=== PATIENT | female | born 1980 | race Caucasian/White ===

== ENCOUNTER 2017-04-28 19:44 | Emergency (ER) | payer MEDICAID ==
[~2017-04-28] VITALS: Ht 170.2 cm; Wt 64.6 kg
[~2017-04-28 19:44] MED LIST: CYCL5TAB PO; TRAM50TA2 PO
[2017-04-28] MEDS ORDERED: HYDROcodone/APAP 5/325 TABLET ONE (21:12)
[2017-04-28] MEDS ORDERED: HYDROcodone/APAP 5/325 TABLET PO ONE (21:30)
[2017-04-28] MEDS ORDERED: DIAZEPAM 5 MG/ML, 2ML IV ONE (22:00)
[2017-04-28] MEDS ORDERED: SODIUM CHLORIDE FLUSH 10ML SYR IVF ONE (22:00)
[2017-04-28] MEDS ORDERED: BUPIVACAINE 0.25% INFIL ONE (22:00)
[2017-04-28] MEDS ORDERED: BUPIVACAINE 0.25% ONE (22:03)
[2017-04-28] MEDS ORDERED: DIAZEPAM 5 MG TABLET ONE (22:11)
[2017-04-28] MEDS ORDERED: LIDOCAINE-MPF 2% ,5ML ONE (22:13)
[2017-04-28 23:27] VITALS: BP 135/87
== END 2017-04-28 23:34 | disposition home or self-care (01) ==
LOC: ED 21:58
DX: S52.531A Colles' fracture of right radius, initial encounter for closed fracture (principal); S52.611A Displaced fracture of right ulna styloid process, initial encounter for closed fracture; G89.11 Acute pain due to trauma; V29.69XA Unspecified motorcycle rider injured in collision with other motor vehicles in traffic accident, initial encounter; Y93.55 Activity, bike riding; Y92.89 Other specified places as the place of occurrence of the external cause; Y99.8 Other external cause status
CPT/HCPCS: 73110; 96374; 99284; J3360

== ENCOUNTER 2017-05-22 15:14 | Day surgery (SDC) | payer MEDICAID ==
[~2017-05-22] VITALS: Ht 170.2 cm; Wt 65.6 kg
[2017-05-22] MEDS ORDERED: LIDOCAINE 1%, 2ML ONE (15:31)
[2017-05-22] MEDS ORDERED: LACTATED RINGERS 1,000 ML IV SCH (15:33)
[2017-05-22 15:44] VITALS: BP 120/80
[2017-05-22 15:45] LABS: DAU SCREEN DISCLAIMER
[2017-05-22 15:51] LABS: HCG UR OBC PASS
[2017-05-22] MEDS ORDERED: IBUP100T6 PO (15:57)
[2017-05-22] MEDS ORDERED: OXYC5CAP2 PO (15:57)
[2017-05-22] MEDS ORDERED: NAPR1TAB25 PO (15:57)
[2017-05-22] MEDS ORDERED: PLEASE ENTER HEIGHT AND WEIGHT MC SCH (16:00)
[2017-05-22] MEDS ORDERED: LIDOCAINE 1%, 2ML SQ PRN (16:00)
[2017-05-22] MEDS ORDERED: BUPIVACAINE/PF 0.5% ONE (16:30)
[2017-05-22] MEDS ORDERED: BUPIVACAINE/PF-EPI 0.25% 1:200K ONE (16:30)
[2017-05-22] MEDS ORDERED: EPINEPHRINE 1 MG/ML, 1ML ONE (16:31)
[2017-05-22] MEDS ORDERED: BACITRACIN 50,000 UNIT ONE (16:31)
[2017-05-22] MEDS ORDERED: MIDAZOLAM 1 MG/ML, 2ML ONE (16:55)
[2017-05-22] MEDS ORDERED: HYDROmorphone 1 MG/ML, 1ML ONE (16:55)
[2017-05-22] MEDS ORDERED: FENTANYL PF 100 MCG/2ML ONE (16:55)
[2017-05-22] MEDS ORDERED: ONDANSETRON 2MG/ML, 2ML ONE (17:08)
[2017-05-22] MEDS ORDERED: ROCURONIUM 10 MG/ML ONE (17:08)
[2017-05-22] MEDS ORDERED: CEFAZOLIN 1,000 MG ONE (17:08)
[2017-05-22] MEDS ORDERED: PROPOFOL 10 MG/ML, 20ML ONE (17:08)
[2017-05-22] MEDS ORDERED: DEXAMETHASONE 4 MG/ML, 1ML ONE (17:08)
[2017-05-22] MEDS ORDERED: SUCCINYLCHOLINE 20 MG/ML, 10ML ONE (17:08)
[2017-05-22] MEDS ORDERED: hydrALAzine 20 MG/ML, 1ML IV PRN (19:00)
[2017-05-22] MEDS ORDERED: ONDANSETRON 2MG/ML, 2ML IVPush PRN (19:00)
[2017-05-22] MEDS ORDERED: FENTANYL PF 100 MCG/2ML IV PRN (19:00)
[2017-05-22] MEDS ORDERED: LABETALOL 5MG/ML, 20ML IV PRN (19:00)
[2017-05-22] MEDS ORDERED: HYDROmorphone 1 MG/ML, 1ML IV PRN (19:00)
[2017-05-22] MEDS ORDERED: METOCLOPRAMIDE 5 MG/ML, 2ML IV PRN (19:00)
[2017-05-22] MEDS ORDERED: ACETAMINOPHEN 325 MG TABLET PO PRN (19:00)
[2017-05-22] MEDS ORDERED: OXYcodone 5 MG/5 ML ORAL.SOL UDC PO PRN (19:00)
[2017-05-22] MEDS ORDERED: ACETAMINOPHEN 650 MG/20.3 ML UDC ONE (19:04)
[2017-05-22] MEDS ORDERED: OXYcodone 5 MG/5 ML ORAL.SOL UDC ONE (19:05)
== END 2017-05-22 22:11 | disposition home or self-care (01) ==
LOC: OR 15:14 → 4NOR 20:00 → OR 22:11
PROVIDERS: ATTEND Orthopaedic Surgery
DX: S52.502P Unspecified fracture of the lower end of left radius, subsequent encounter for closed fracture with malunion (principal); X58.XXXD Exposure to other specified factors, subsequent encounter; Z79.899 Other long term (current) drug therapy
CPT/HCPCS: 25400; 73100; 76001; 80307; 81025; C1713; J0171; J0330; J0690; J1100; J1170; J2250; J2405; J2704; J3010; J3490; G0479

== ENCOUNTER 2018-05-05 10:44 | Emergency (ER) | payer MEDICAID ==
[~2018-05-05] VITALS: Ht 167.6 cm; Wt 66.0 kg
[~2018-05-05 10:44] MED LIST changes: +IBUP100T6 PO; +NAPR1TAB25 PO; +OXYC5CAP2 PO
[2018-05-05] MEDS ORDERED: IBUPROFEN 200 MG TABLET PO ONE (11:30)
[2018-05-05] MEDS ORDERED: ACETAMINOPHEN 500 MG TABLET PO ONE (11:30)
[2018-05-05] MEDS ORDERED: IBUPROFEN 200 MG TABLET ONE (11:47)
[2018-05-05] MEDS ORDERED: ACETAMINOPHEN 500 MG TABLET ONE (11:48)
[2018-05-05 11:49] LABS: BASOPHILS # (AUTO) 0.03 x10^3/uL (0-0.1); BASOPHILS % (AUTO) 0 % (0-1); EOSINOPHILS # (AUTO) 0.01 x10^3/uL (0-0.4); EOSINOPHILS % (AUTO) 0 % (1-7); LYMPHOCYTES # (AUTO) 2.87 x10^3/uL (1-3.4); LYMPHOCYTES % (AUTO) 23 % (22-44); MD NO; MEAN CORPUSCULAR HEMOGLOBIN 31.6 pg (27.0-34.8); MEAN CORPUSCULAR HGB CONC 34.5 g/dL (32.4-35.8); MEAN CORPUSCULAR VOLUME 91.4 fL (80-100); MEAN PLATELET VOLUME 8.1 fL (7.4-10.4); MONOCYTES # (AUTO) 0.91 x10^3/uL (0.2-0.8); MONOCYTES % (AUTO) 7 % (2-9); NEUTROPHILS # (AUTO) 8.54 x10^3/uL (1.8-6.8); NEUTROPHILS % (AUTO) 69 % (42-75); PLATELET COUNT 330 x10^3/uL (130-400); RED BLOOD COUNT 4.56 x10^6/uL (3.82-5.3)
[2018-05-05 11:56] LABS: MICROSCOPIC AUTO
[2018-05-05 11:58] LABS: CULTURE INDICATED? NO
[2018-05-05 12:00] LABS: ALBUMIN 4.6 g/dL (3.4-5.0); ANION GAP 11 mmol/L (5-15); CALCIUM 8.9 mg/dL (8.5-10.1); CHLORIDE 104 mmol/L (98-107)
[2018-05-05 12:05] LABS: CREATININE 0.96 mg/dL (0.55-1.02)
[2018-05-05 12:31] VITALS: BP 148/91
[2018-05-05] MEDS ORDERED: SODIUM CHLORIDE 0.9% 1,000ML IVBOLUS ONE (13:00)
== END 2018-05-05 13:53 | disposition left against medical advice (07) ==
LOC: ED 13:47
DX: M54.5 Low back pain (principal); R10.9 Unspecified abdominal pain; F17.200 Nicotine dependence, unspecified, uncomplicated
CPT/HCPCS: 36415; 80048; 81001; 82040; 82550; 84703; 85025; 99284

== ENCOUNTER → 2019-06-30 | Outpatient (CLI) | payer MEDICAID ==
[~2019-06-30] MED LIST changes: +LIDOCAINE-MPF 1%, 5ML ONE; +OMNIPAQUE 350 MG/ML, 50 ML BOTTLE ONE; +SODIUM BICARBONATE 4.0%, 5ML ONE
== END | disposition home or self-care (01) ==
LOC: RAD 12:44
PROVIDERS: ATTEND Orthopaedic Surgery
DX: M25.732 Osteophyte, left wrist (principal)
CPT/HCPCS: 73115; 73222; Q9967

== ENCOUNTER 2019-07-30 08:10 | Outpatient (CLI) | payer MEDICAID ==
[~2019-07-30 08:10] MED LIST changes: -LIDOCAINE-MPF 1%, 5ML ONE; -OMNIPAQUE 350 MG/ML, 50 ML BOTTLE ONE; -SODIUM BICARBONATE 4.0%, 5ML ONE
== END 2019-07-30 23:59 | disposition home or self-care (01) ==
LOC: CARD 08:10
PROVIDERS: ATTEND Orthopaedic Surgery
DX: M25.532 Pain in left wrist (principal)
CPT/HCPCS: 95886; 95908

== ENCOUNTER 2020-03-21 05:18 | Inpatient (IN) | payer MEDICAID ==
[~2020-03-21] VITALS: Ht 167.6 cm; Wt 90.0 kg
[2020-03-21] MEDS ORDERED: D5%-LACTATED RINGERS 1,000 ML IV SCH (05:22)
[2020-03-21] MEDS ORDERED: OXYTOCIN 30U/ 0.9% NaCL 500ML 500 ML IV ONE (05:22)
[2020-03-21] MEDS ORDERED: MISOPROSTOL 200 MCG TABLET ONE (05:30)
[2020-03-21] MEDS ORDERED: FENTANYL PF 100 MCG/2ML IV PRN (05:30)
[2020-03-21] MEDS ORDERED: OXYTOCIN 30U/ 0.9% NaCL 500ML 500 ML ONE (05:30)
[2020-03-21] MEDS: LACTATED RINGERS 1,000 ML IV SCH ×3 (05:30→14:01)
[2020-03-21] MEDS ORDERED: LIDOCAINE 1%, 20ML ONE (05:30)
[2020-03-21] MEDS ORDERED: MISOPROSTOL 25 MCG TABLET ONE (05:30)
[2020-03-21] MEDS ORDERED: ONDANSETRON 2MG/ML, 2ML IVPush PRN (05:30)
[2020-03-21] MEDS ORDERED: TERBUTALINE 1 MG/ML, 1ML IVPush PRN (05:30)
[2020-03-21] MEDS ORDERED: MISOPROSTOL 25 MCG TABLET VG PRN (05:30)
[2020-03-21] MEDS ORDERED: TERBUTALINE 1 MG/ML, 1ML SQ PRN (05:30)
[2020-03-21] MEDS ORDERED: NEWBORN KIT ONE (05:37)
[2020-03-21 05:40] VITALS: BP 113/67
[2020-03-21 06:26] LABS: BASOPHILS # (AUTO) 0.05 x10^3/uL (0-0.1); BASOPHILS % (AUTO) 1 % (0-1); EOSINOPHILS # (AUTO) 0.08 x10^3/uL (0-0.4); EOSINOPHILS % (AUTO) 1 % (1-7); LYMPHOCYTES # (AUTO) 2.18 x10^3/uL (1-3.4); LYMPHOCYTES % (AUTO) 24 % (22-44); MD NO; MEAN CORPUSCULAR HEMOGLOBIN 30.8 pg (27.0-34.8); MEAN CORPUSCULAR HGB CONC 33.4 g/dL (32.4-35.8); MEAN PLATELET VOLUME 8.7 fL (7.4-10.4); MONOCYTES # (AUTO) 0.46 x10^3/uL (0.2-0.8); MONOCYTES % (AUTO) 5 % (2-9); NEUTROPHILS # (AUTO) 6.35 x10^3/uL (1.8-6.8); NEUTROPHILS % (AUTO) 70 % (42-75); PLATELET COUNT 239 x10^3/uL (130-400); RED BLOOD COUNT 4.25 x10^6/uL (3.82-5.3); RED CELL DISTRIBUTION WIDTH 14.4 % (9.6-15.2)
[2020-03-21] MEDS ORDERED: CALCIUM CARBONATE 500 MG TAB.CHEW ONE ×2 (07:17→18:34)
[2020-03-21] MEDS: CALCIUM CARBONATE 500 MG TAB.CHEW PO PRN ×2 (07:20→18:36)
[2020-03-21 09:11] LABS: AMPHETAMINE SCREEN, URINE Negative (Negative); BARBITURATE SCREEN, URINE Negative (Negative); BENZODIAZEPINE SCREEN, URINE Negative (Negative); CANNABINOID SCREEN, URINE Negative (Negative); COCAINE SCREEN, URINE Negative (Negative); METHADONE SCREEN, URINE Negative (Negative); OPIATE SCREEN, URINE Negative (Negative)
[2020-03-21] MEDS ORDERED: FENTANYL PF 100 MCG/2ML ONE ×3 (12:51→17:52)
[2020-03-21] MEDS: FENTANYL PF 100 MCG/2ML IVPush PRN ×3 (15:11→17:54)
[2020-03-21] MEDS ORDERED: FENTANYL/BUPIV./NS/PF 250 ML EPIDCONT SCH (17:57)
[2020-03-21] MEDS ORDERED: LACTATED RINGERS 1,000 ML IVBOLUS PRN (18:00)
[2020-03-21] MEDS: OXYTOCIN 30U/ 0.9% NaCL 500ML 500 ML IV SCH (19:38)
[2020-03-21] MEDS ORDERED: MISOPROSTOL 200 MCG TABLET PR PRN (20:00)
[2020-03-21] MEDS ORDERED: CARBOPROST TROMETHAMINE 250 MCG/ML, 1ML IM PRN (20:00)
[2020-03-21] MEDS ORDERED: ACETAMINOPHEN 325 MG TABLET PO PRN (20:00)
[2020-03-21] MEDS ORDERED: METHYLERGONOVINE 0.2 MG/ML IM PRN (20:00)
[2020-03-21] MEDS ORDERED: OXYcodone/APAP 5/325MG TABLET PO PRN (20:00)
[2020-03-21] MEDS ORDERED: DIPH,PERTUSS(ACELL),TET VAC/PF NC IM-VACC PRN (20:00)
[2020-03-21] MEDS ORDERED: SIMETHICONE 80 MG CHEW TAB PO PRN (20:00)
[2020-03-21] MEDS ORDERED: IBUPROFEN 600 MG TABLET ONE (21:16)
[2020-03-21] MEDS ORDERED: OXYcodone/APAP 5/325MG TABLET ONE (21:16)
[2020-03-21] MEDS: IBUPROFEN 600 MG TABLET PO PRN (21:18)
[2020-03-21] MEDS: OXYcodone/APAP 5/325MG TABLET PO PRN (21:19)
[2020-03-21 22:36] VITALS: BP 101/67
[2020-03-22] MEDS: OXYcodone/APAP 5/325MG TABLET PO PRN ×5 (00:56→21:03)
[2020-03-22] MEDS: DOCUSATE 100 MG CAPSULE PO PRN ×3 (00:56→21:03)
[2020-03-22] MEDS ORDERED: CALCIUM CARBONATE 500 MG TAB.CHEW ONE (01:00)
[2020-03-22] MEDS ORDERED: CALCIUM CARBONATE 500 MG TAB.CHEW PO PRN (01:30)
[2020-03-22 02:15] VITALS: BP 117/74
[2020-03-22] MEDS: IBUPROFEN 600 MG TABLET PO PRN ×4 (04:11→23:13)
[2020-03-22 05:01] LABS: MEAN CORPUSCULAR HEMOGLOBIN 30.7 pg (27.0-34.8); MEAN CORPUSCULAR HGB CONC 33.1 g/dL (32.4-35.8); MEAN CORPUSCULAR VOLUME 92.9 fL (80-100); MEAN PLATELET VOLUME 8.9 fL (7.4-10.4); PLATELET COUNT 249 x10^3/uL (130-400); RED BLOOD COUNT 4.06 x10^6/uL (3.82-5.3); RED CELL DISTRIBUTION WIDTH 14.5 % (9.6-15.2)
[2020-03-22 05:31] LABS: BASOPHILS # (AUTO) 0.01 x10^3/uL (0-0.1); BASOPHILS % (AUTO) 0 % (0-1); EOSINOPHILS # (AUTO) 0.01 x10^3/uL (0-0.4); EOSINOPHILS % (AUTO) 0 % (1-7); LYMPHOCYTES # (AUTO) 1.49 x10^3/uL (1-3.4); LYMPHOCYTES % (AUTO) 8 % (22-44); MD SCAN; MONOCYTES # (AUTO) 0.94 x10^3/uL (0.2-0.8); MONOCYTES % (AUTO) 5 % (2-9); NEUTROPHILS # (AUTO) 16.28 x10^3/uL (1.8-6.8); NEUTROPHILS % (AUTO) 87 % (42-75)
[2020-03-22 05:53] VITALS: BP 113/68
[2020-03-22] MEDS: OXYTOCIN 30U/ 0.9% NaCL 500ML 500 ML IV SCH (05:59)
[2020-03-22 07:40] VITALS: BP 103/65
[2020-03-22] MEDS: PRENATAL VIT/IRON/FA 1 EACH TABLET PO SCH (07:45)
[2020-03-22 15:00] VITALS: BP 112/66
[2020-03-22 21:00] VITALS: BP 102/57
[2020-03-23] MEDS: OXYcodone/APAP 5/325MG TABLET PO PRN ×4 (01:18→13:55)
[2020-03-23] MEDS: IBUPROFEN 600 MG TABLET PO PRN ×2 (05:37→13:54)
[2020-03-23 07:50] VITALS: BP 103/65
[2020-03-23] MEDS ORDERED: IBUP-1222 PO (09:31)
[2020-03-23] MEDS: DOCUSATE 100 MG CAPSULE PO PRN (09:44)
[2020-03-23] MEDS: PRENATAL VIT/IRON/FA 1 EACH TABLET PO SCH (09:44)
== END 2020-03-23 15:10 | disposition home or self-care (01) | DRG 807 ==
LOC: LDIP 05:18 → 2NW 22:27
PROVIDERS: ADMIT Obstetrics & Gynecology Maternal & Fetal Medicine; ATTEND Obstetrics & Gynecology Maternal & Fetal Medicine
PROC: 0HQ9XZZ Repair Perineum Skin, External Approach (ICD-10-PCS; principal; 2020-03-21)
PROC: 10E0XZZ Delivery of Products of Conception, External Approach (ICD-10-PCS; 2020-03-21)
PROC: 3E0234Z Introduction of Serum, Toxoid and Vaccine into Muscle, Percutaneous Approach (ICD-10-PCS; 2020-03-22)
DX: O48.0 Post-term pregnancy (principal); Z37.0 Single live birth; O70.0 First degree perineal laceration during delivery; Z3A.41 41 weeks gestation of pregnancy; Z23 Encounter for immunization
CPT/HCPCS: 36415; 80307; 82803; 85025; 86592; 86850; 86900; 87635; G0378; J3010; J2590; J7120